=== PATIENT | female | born 1930 | race Caucasian/White ===

== ENCOUNTER 2016-06-04 10:27 | Day surgery (SDC) | payer MEDICARE, MEDICAID ==
[~2016-06-04] VITALS: Ht 157.5 cm; Wt 52.0 kg
[~2016-06-04 10:27] MED LIST: CLOP75TA19 PO; DONE10TA7 PO; GLYB1TAB2 PO; METO-448 PO; PRAV40TA76 PO; TRAM50TA2 PO
--- NOTE | 2016-06-04 11:24 | RADRPT ---
PROCEDURE: XR Chest. CLINICAL INDICATION: Chest pain preoperative evaluation. TECHNIQUE: AP view of the chest was performed. COMPARISON: None FINDINGS: The patient is status post remote median sternotomy. Mild cardiomegaly is present with a left subcl jesusita dual-chamber pacemaker. No acute infiltrate or findings of fluid overload. No signs of pleur al fluid or pneumothorax are seen. The osseous structures and soft tissues are unremarkable. IMPRESSION: No evidence for active cardiopulmonary disease. Status post remote median sternotomy, mild cardiomeg hillary, and cardiac pacer. No acute infiltrate or findings of fluid overload. RPTAT: QQ .Niecy Kearns MD, MD Date Time Electronically viewed and signed by .Niecy Kearns MD, MD on 06/04/2016 11:24 .F/
[2016-06-04 12:17] VITALS: Ht 157.5 cm; Wt 52.0 kg
[2016-06-04 12:20] LABS: ADD SCAN DIFF NO
[2016-06-04 12:23] LABS: BASOPHILS % 0.7 % (0.0-2.0); EOSINOPHILS # 0.2 10^3/ul (0.0-0.5); EOSINOPHILS % 3.6 % (0.0-7.0); HEMATOCRIT 33.1 % (37.0-47.0); HEMOGLOBIN 10.9 g/dl (12.0-16.0); LYMPHOCYTES # 1.4 10^3/ul (0.8-2.9); LYMPHOCYTES % 31.5 % (15.0-51.0); MEAN CORPUSCULAR HGB CONC 32.9 g/dl (32.0-37.0); MEAN CORPUSCULAR VOLUME 100.3 fl (82.0-101.0); MEAN PLATELET VOLUME 11.3 fl (7.4-10.4); MONOCYTE # 0.5 10^3/ul (0.3-0.9); MONOCYTES % 11.7 % (0.0-11.0); NEUTROPHIL # 2.3 10^3/ul (1.6-7.5); NEUTROPHILS % 52.3 % (39.0-77.0); PLATELET COUNT 145 10^3/UL (140-415); WHITE BLOOD COUNT 4.5 10^3/ul (4.8-10.8)
[2016-06-04 12:36] LABS: PROTIME 13.2 Sec (12.2-14.2)
[2016-06-04 12:37] LABS: PARTIAL THROMBOPLASTIN TIME 27.2 Sec (25.0-35.0)
[2016-06-04 12:39] LABS: POTASSIUM 5.6 mmol/L (3.5-5.1)
[2016-06-04 12:40] VITALS: BP 142/60; PULSE 60; RESP 18
[2016-06-04 12:40] LABS: CREATININE 1.04 mg/dl (0.44-1.00)
[2016-06-04 12:41] LABS: CALCIUM 9.4 mg/dl (8.4-10.2)
[2016-06-04] MEDS ORDERED: ATOR10TA65 PO (12:47)
[2016-06-04] MEDS ORDERED: SITA100T8 PO (12:47)
[2016-06-04] MEDS ORDERED: GLIM1TAB2 PO (12:47)
[2016-06-04] MEDS ORDERED: CLON0.5T4 PO (12:47)
[2016-06-04] MEDS ORDERED: FURO40TA4 PO (12:47)
[2016-06-04] MEDS ORDERED: SPIR25TA PO (12:47)
--- NOTE | 2016-06-04 15:11 | SP ---
DATE OF PROCEDURE: 06/04/2016 PREPROCEDURE DIAGNOSIS: Left first toe nonhealing ulcer. POSTPROCEDURE DIAGNOSIS: Left first toe nonhealing ulcer. PROCEDURE PERFORMED: 1. Abdominal aortogram. 2. Bilateral lower extremity angiogram. 3. Percutaneous catheter placement from right common femoral artery into the left popliteal artery. SURGEON: Dex Mariscal MD ANESTHESIA: Local anesthesia. ESTIMATED BLOOD LOSS: Minimal. COMPLICATIONS: No intraprocedural complications. INDICATIONS: This is an 85-year-old diabetic hypertensive woman with long history of peripheral art erial disease. She has a nonhealing ulcer on the left first toe which is very painful. It has been present for several months of the hip without significant improvement. She has palpable popliteal pulse, but no pedal pulses. She was brought in today for angiography and possible intervention. PROCEDURE: The patient was brought to the mushroom laborer and placed on the table in supine position. Aft er the groins were prepped and draped in the usual sterile fashion I used ultrasound to identify the right common femoral artery. I infiltrated over the artery using about 10 mL of 1% Xylocaine. I u sed a micropuncture needle to enter the artery under ultrasound guidance. An 0.018 wire was inserte d through the needle into the artery then a micropuncture sheath was advanced over the wire into the artery. I then advanced an 0.035 Bentson wire into the abdominal aorta, exchanged the micropunctur e sheath for a 5-Sinhala sheath over the wire. I then advanced an Omniflush catheter into the juxtar enal aorta. I did an aortogram. I then advanced the catheter up and over the bifurcation using a B entson wire and first into the common femoral and into the popliteal artery for further evaluation. FINDINGS OF ANGIOGRAPHY: Both renal arteries are patent. The infrarenal aorta is diffusely irregul ar but patent. Both common external and internal iliac arteries are calcified and has some irregula rity but no significant stenosis. The common, superficial and profunda femoral arteries bilaterally are patent without significant disease and going down the left side, the left superficial femoral a rtery is patent. The popliteal artery is patent above and below the knee. There is a very high nolan eoff of the left anterior tibial artery and it occludes just after its origin. The posterior tibial artery on the left as well as peroneal are both quite small and very heavily calcified, although, p atent. There is sort of diffuse narrowing throughout both. The posterior tibial artery essentially occluded at the ankle. The plantar branches then made a medial plantar artery reconstitutes from a branch coming from the peroneal and there is reconstitution of the distal anterior tibial artery and just above the ankle which extends into the foot. The very distal dorsalis pedis artery is occlude d but more proximally it is patent. There is an incomplete pedal arch. When we removed all the cat heter sheaths and wires and used manual compression for hemostasis which was good in the right groin . She was then transferred to the recovery room in stable condition. She tolerated the procedure w ell without any complications. Dictated By: DEX CARLTON/JACY Conf#: [id number] DID#: [id number] CC: MERRICK POND MD;*EndCC*
[2016-06-04 18:43] VITALS: BP 120/63; PULSE 68; RESP 18
--- NOTE | 2016-06-08 17:51 | RADRPT ---
Vent Rate: 60 bpm RR Interval: 0 msec WA Interval: 148 msec QRS Duration: 96 msec QT Interval: 440 msec QTC Interval: 440 msec P-R-T [place]: 117 - 9 - 119 degrees Electronic atrial pacemaker T wave abnormality, consider lateral ischemia Abnormal ECG Electronically Signed By: Juventino Meeks [id number]
== END 2016-06-04 18:46 | disposition home or self-care (01) ==
LOC: SDS 10:27 → GIL 10:33 → SDS 18:46
PROVIDERS: ATTEND Surgery Vascular Surgery
DX: L97.529 Non-pressure chronic ulcer of other part of left foot with unspecified severity (principal); I73.9 Peripheral vascular disease, unspecified
CPT/HCPCS: 36200; 71010; 75716; 80048; 82962; 85025; 85610; 85730; 93005; C1769; C1887; C1894

== ENCOUNTER 2016-07-28 09:52 | Day surgery (SDC) | payer MEDICARE, MEDICAID ==
[~2016-07-28] VITALS: Ht 144.8 cm; Wt 54.0 kg
[~2016-07-28 09:52] MED LIST changes: +ATOR10TA65 PO; +CLON0.5T4 PO; +FURO40TA4 PO; +GLIM1TAB2 PO; -GLYB1TAB2 PO; -METO-448 PO; -PRAV40TA76 PO; +SITA100T8 PO; +SPIR25TA PO; -TRAM50TA2 PO
[2016-07-28 10:43] VITALS: Ht 144.8 cm; Wt 54.0 kg
[2016-07-28 10:45] VITALS: BP 144/62; PULSE 61; RESP 18
[2016-07-28 10:57] LABS: ADD SCAN DIFF NO
[2016-07-28 11:03] LABS: BASOPHILS % 0.5 % (0.0-2.0); EOSINOPHILS # 0.1 10^3/ul (0.0-0.5); EOSINOPHILS % 2.1 % (0.0-7.0); HEMATOCRIT 32.8 % (37.0-47.0); HEMOGLOBIN 10.6 g/dl (12.0-16.0); LYMPHOCYTES # 1.2 10^3/ul (0.8-2.9); MEAN CORPUSCULAR HEMOGLOBIN 33.9 pg (29.0-33.0); MEAN CORPUSCULAR HGB CONC 32.3 g/dl (32.0-37.0); MEAN CORPUSCULAR VOLUME 104.8 fl (82.0-101.0); MEAN PLATELET VOLUME 11.4 fl (7.4-10.4); MONOCYTE # 0.5 10^3/ul (0.3-0.9); MONOCYTES % 12.6 % (0.0-11.0); NEUTROPHIL # 1.9 10^3/ul (1.6-7.5); NEUTROPHILS % 51.5 % (39.0-77.0); PLATELET COUNT 143 10^3/UL (140-415); RED BLOOD COUNT 3.13 10^6/ul (4.20-5.40); RED CELL DISTRIBUTION WIDTH 13.2 % (11.5-14.5); WHITE BLOOD COUNT 3.7 10^3/ul (4.8-10.8)
[2016-07-28 11:10] LABS: INR 1.08; PT RATIO 1.1
[2016-07-28 11:12] LABS: PARTIAL THROMBOPLASTIN TIME 27.8 Sec (25.0-35.0)
[2016-07-28 11:15] LABS: CALCIUM 9.1 mg/dl (8.4-10.2); POTASSIUM 3.9 mmol/L (3.5-5.1)
[2016-07-28 11:17] LABS: CREATININE 1.2 mg/dl (0.44-1.00)
--- NOTE | 2016-07-28 12:45 | RADRPT ---
PROCEDURE: XR Chest. CLINICAL INDICATION: Shortness of breath. TECHNIQUE: Single frontal view. COMPARISON: 06/04/2016. FINDINGS: There is mild interstitial disease bilaterally in the mid and lower lung zones consistent with mild pulmonary edema. The lungs are otherwise clear. The heart is enlarged. There are sternal wires and mediastinal clips. There is a left-sided dual l ead permanent pacemaker. There is no pleural effusion. There is no pneumothorax. IMPRESSION: 1. Mild pulmonary edema. 2. Cardiomegaly. 3. Previous median sternotomy. 4. Permanent pacemaker. RPTAT: QQ .Donis Zepeda MD, MD Date Time Electronically viewed and signed by .Donis Zepeda MD, MD on 07/28/2016 12:45 .R/
[2016-07-28] MEDS ORDERED: HEPARIN 1000 UNITS/ML 10 ML INJ ONE ×2 (14:31→14:32)
[2016-07-28] MEDS ORDERED: FENTAnyl 50 MCG/ML VIAL ONE (14:31)
[2016-07-28] MEDS ORDERED: HEPARIN 1000 UNITS/NS (A-LINE) 1,000 ML ONE (14:32)
[2016-07-28] MEDS ORDERED: MIDAZOLAM 1 MG/ML 2 ML INJ ONE (14:32)
[2016-07-28] MEDS ORDERED: LIDOCAINE 1% (MDV) 20 ML INJ ONE (14:32)
[2016-07-28] MEDS ORDERED: IODIXANOL LOCM 100 ML BTL ONE (14:32)
[2016-07-28] MEDS ORDERED: VERAPAMIL 5 MG INJ ONE (15:24)
[2016-07-28 16:30] VITALS: BP 139/61; PULSE 63; RESP 18
--- NOTE | 2016-07-28 17:08 | OPR ---
DATE OF OPERATION: 07/28/2016 PREOPERATIVE DIAGNOSIS: Left first toe nonhealing ulcer. POSTOPERATIVE DIAGNOSIS: Left first toe nonhealing ulcer. PROCEDURE PERFORMED: 1. Abdominal aortogram. 2. Left lower extremity arteriogram. 3. Percutaneous mechanical atherectomy and angioplasty of left tibioperoneal trunk artery and left peroneal artery. SURGEON: Dex Mariscal MD ANESTHESIA: Local with sedation. ESTIMATED BLOOD LOSS: Minimal. COMPLICATIONS: No intraprocedural complications. INDICATIONS: This is an 85-year-old woman with nonhealing ulcer on the left first toe. She has a p revious arteriogram which showed some diffuse tibial disease. The anterior tibial was occluded. Pe roneal was the main runoff and left posterior tibial artery occludes distally so I brought her back today for percutaneous intervention. I had vein mapped her and she had no usable saphenous veins so I thought it would be better to do a percutaneous intervention. PROCEDURE: The patient was brought to the cathodic protection technician and placed on the table in supine position. [facility] groin was prepped and draped in the usual sterile fashion. Using ultrasound to identify the [facility] common femoral artery, I infiltrated over the artery using 10 mL of 1% Xylocaine. I then used a m icropuncture needle to enter the right common femoral artery under ultrasound guidance. I advanced an 0.018 wire through the needle into the artery and then a micropuncture sheath was advanced over t he wire into the artery. I then advanced an 0.035 Bentson wire up into the abdominal aorta, exchang ed the micropuncture sheath for a 5-Kittitian sheath over the wire and then advanced an Omniflush jason ter over the Bentson into the infrarenal aorta. I did an aortogram. I then advanced the wire up an d over the bifurcation using the catheter for guidance and advanced the wire down into the left supe rficial femoral artery and advanced the catheter over the wire down into left superficial femoral ar layo and further down into the popliteal. I then did left lower extremity arteriography with findin robyn as described previously, but essentially the aorta is with findings as detailed below. Once I vazquez d the catheter in the popliteal, I advanced an Amplatz wire through the catheter and exchanged the 5 -Kittitian sheath for a 6-Kittitian 70 cm sheath which I left in the left popliteal artery and did further lower extremity angiography and finally proceeded with intervention. FINDINGS OF ANGIOGRAPHY: The infrarenal aorta was patent. The common and external iliac arteries w ere patent bilaterally. Internal iliac arteries were patent bilaterally. Both common, superficial and profunda femoral arteries are patent without any significant disease. Everything is fairly heav frandy calcified, but there was no stenosis. Then going down the left leg, the SFA and popliteal are w idely patent above and below the knee. Below the knee, the anterior tibial artery comes off right a t the knee and occludes very shortly after its origin and then the TP trunk is patent but was so tig htly calcified that I could not get 0.035 Quick-Cross catheter through it. The peroneal artery has sort of an angled origin with greater than 90% stenosis at its origin. The posterior tibial artery is patent with some disease at its origin and then sort of dissipates distally and becomes very tin y. The peroneal artery is the main vessel going down to the foot. The stenosis at the origin is pa tent down to the ankle and gives off large collaterals the which reconstitute the dorsalis pedis and some plantar branches. So I decided to treat the TP trunk stenosis, high-grade calcified stenosis as well as the proximal stenosis in the peroneal artery, so I advanced through that. I gave the pat ient 5000 units of heparin intravenously. I then advanced the Viper wire down through the stenosis in the TP trunk and I was able to get the wire to advance into the peroneal down into its distal por tion. I then used a 1.25 micro CSI orbital atherectomy catheter. I made 3 passes through each of t he lesions. The one in the TP trunk and also at the origin of the peroneal on low, medium and high settings. I then postdilated the TP trunk stenosis with a 3.5 mm balloon x 6 cm in length for 2 min utes. I did a long inflation with no residual stenosis. The stenosis at the origin of the peroneal was completely gone now and was widely patent just after the CSI orbital atherectomy, so I did not do any angioplasty of the peroneal. At this point, I was happy with the results. I pulled the galicia th back into the right external iliac artery and did a completion view which showed groin puncture s ite was in the common femoral artery in good position. I then advanced the [employer] Search[employer] wire back into t he sheath up into the aorta and then closed the right femoral puncture using a 6-Kittitian Angio-Seal d evice. There was good hemostasis. Patient tolerated the procedure well. She was transferred to re covery room in stable condition without any complications. Dictated By: DEX CARLTON/JACY Conf#: [id number] DID#: [id number]
[2016-07-28 17:30] VITALS: BP 133/66; PULSE 64; RESP 18
[2016-07-28 18:10] VITALS: BP 132/64; PULSE 63; RESP 18
--- NOTE | 2016-07-30 09:30 | RADRPT ---
Vent Rate: 59 bpm RR Interval: 0 msec AR Interval: 152 msec QRS Duration: 96 msec QT Interval: 450 msec QTC Interval: 445 msec P-R-T [place]: 75 - 1 - 101 degrees Electronic atrial pacemaker Nonspecific T wave abnormality Abnormal ECG Electronically Signed By: Manuel Fields [id number]
== END 2016-07-28 18:35 | disposition home or self-care (01) ==
LOC: SDS 09:52
PROVIDERS: ATTEND Surgery Vascular Surgery
DX: I73.9 Peripheral vascular disease, unspecified (principal); L97.529 Non-pressure chronic ulcer of other part of left foot with unspecified severity
CPT/HCPCS: 37229; 71010; 80048; 82962; 85025; 85610; 85730; 93005; C1714; C1725; C1760; C1769; C1887; C1894; J1644; J2250; J3010; Q9967

== ENCOUNTER 2018-06-20 10:45 | Emergency (ER) | payer MEDICARE, OTHER ==
[~2018-06-20] VITALS: Ht 152.4 cm; Wt 58.0 kg
[~2018-06-20 10:45] MED LIST changes: +CLON0.5T14 PO; -CLON0.5T4 PO; -SITA100T8 PO; -SPIR25TA PO
[2018-06-20 10:48] VITALS: Ht 152.4 cm; Wt 58.0 kg
[2018-06-20] MEDS ORDERED: HYDROmorphONE 1 MG/ML SYG IV STA (11:22)
[2018-06-20] MEDS ORDERED: ONDANSETRON 4 MG INJ IV STA (11:22)
[2018-06-20] MEDS ORDERED: METHYLPREDNISOLONE 125 MG INJ IV ONE (11:30)
[2018-06-20] MEDS ORDERED: CLOP75TA27 PO (12:03)
[2018-06-20] MEDS ORDERED: CLON1TAB13 PO (12:03)
[2018-06-20] MEDS ORDERED: DONE10TA7 PO (12:03)
[2018-06-20] MEDS ORDERED: LEVO50TA71 PO (12:04)
[2018-06-20] MEDS ORDERED: FURO40TA4 PO (12:04)
[2018-06-20] MEDS ORDERED: GLIM1TAB2 PO (12:04)
[2018-06-20] MEDS ORDERED: CHOL100062 PO (12:05)
[2018-06-20] MEDS ORDERED: INSU100I12 SQ (12:06)
[2018-06-20] MEDS ORDERED: TRAM50TA2 PO (12:43)
[2018-06-20] MEDS ORDERED: PRED20TA PO (12:43)
[2018-06-20] MEDS ORDERED: HYDR-4011 PO (12:43)
--- NOTE | 2018-06-20 13:03 | ERD ---
ER Documentation Chief Complaint Chief Complaint DIABETIC ULCER LT FOOT WITH PAIN X 1 WEEK HPI This is a 87-year-old female with diabetic who is here because her left leg hurts from the left knee to the foot described as a burning sensation and is much worse at night. This is been happening off and on for a few months but is getting more consistent over the past few weeks. There is no discoloration to the leg or toes. The patient had a small callus on the tip of her left great toe that was filed off by the family and they want me to evaluate that too, there is no erythema. ROS All systems reviewed and are negative except as per history of present illness. Medications Home Meds Active Scripts Prednisone* (Prednisone*) 20 Mg Tab, 60 MG PO DAILY for 5 Days, TAB Prov:HOWARD SERVIN DO 06/20/18 Hydrocodone/Acetaminophen ([place] 5-325 Tablet) 1 Each Tablet, 1 TAB PO Q6H PRN for PAIN, #15 TAB Prov:HOWARD SERVIN DO 06/20/18 Tramadol HCl (Tramadol HCl) 50 Mg Tablet, 50 MG PO Q6, #20 TAB Prov:HOWARD SERVIN DO 06/20/18 Reported Medications Insulin Lispro (Humalog Kwikpen U-100) 100 Unit/1 Ml Insuln.pen, 0 SQ AC MEALS, EA SLIDING SCALE 06/20/18 Cholecalciferol* (Vitamin D3*) 1,000 Unit Tablet, 1000 UNIT PO DAILY, TAB 06/20/18 Levothyroxine Sodium* (Levoxyl*) 50 Mcg Tablet, 50 MCG PO BEFORE BREAKFAST, #30 TAB 06/20/18 Glimepiride* (Glimepiride*) 1 Mg Tablet, 1 MG PO WITH BREAKFAST, TAB 06/20/18 Furosemide* (Furosemide*) 40 Mg Tablet, 40 MG PO DAILY, TAB 06/20/18 Donepezil* (Aricept*) 10 Mg Tablet, 10 MG PO DAILY, TAB 06/20/18 Clopidogrel Bisulfate (Clopidogrel) 75 Mg Tablet, 75 MG PO DAILY, #30 TAB 06/20/18 Clonazepam* (Clonazepam*) 1 Mg Tablet, 1 MG PO DAILY PRN for ANXIETY, TAB 06/20/18 Discontinued Reported Medications Clonazepam* (Clonazepam*) 0.5 Mg Tablet, 0.5 MG PO BID, TAB 06/04/16 Atorvastatin Calcium (Atorvastatin Calcium) 10 Mg Tablet, 10 MG PO QHS, #30 TAB 06/04/16 Glimepiride* (Glimepiride*) 1 Mg Tablet, 1 MG PO WITH BREAKFAST, TAB 06/04/16 Furosemide* (Furosemide*) 40 Mg Tablet, 40 MG PO DAILY, TAB 06/04/16 Clopidogrel Bisulfate (Plavix) 75 Mg Tablet, 75 MG PO DAILY 11/29/11 Donepezil* (Aricept*) 10 Mg Tablet, 10 MG PO DAILY 11/29/11 Allergies Allergies: Coded Allergies: No Known Allergies (Verified Allergy, Unknown, 06/20/18) PMhx/Soc History of Surgery: Yes (CABG,PPM,TRIPLE BYPASS,CLIP ON VALVE) Anesthesia Reaction: No Hx Neurological Disorder: No Hx Respiratory Disorders: No Hx Cardiac Disorders: Yes ([place]) Hx Psychiatric Problems: No Hx Miscellaneous Medical Probl: No Hx Alcohol Use: No Hx Substance Use: No Hx Tobacco Use: No Smoking Status: Never smoker FmHx Family History: No coronary disease Physical Exam Vitals Vital Signs Date Temp Pulse Resp B/P (MAP) Pulse Ox O2 O2 Flow FiO2 Time Delivery Rate 06/20/18 98.3 77 18 104/50 95 10:48 (68) Physical Exam Const: Well-developed, well-nourished Head: Atraumatic, normocephalic Eyes: Normal Conjunctiva, PERRLA, EOMI, normal sclera, no nystagmus ENT: Normal External Ears, Nose and Mouth, moist mucus membranes. Neck: Full range of motion. No meningismus, no lymphadenopathy. Resp: Clear to auscultation bilaterally, no wheezing, rhonchi, rales Cardio: Regular rate and rhythm, no murmurs, S1 S2 present Abd: Soft, non tender x 4, non distended. Normal bowel sounds, no guarding or rebound, no pulsitile abdominal masses or bruits Skin: No petechiae or rashes, no ecchymosis , no maculopapular rash Back: No midline or flank tenderness Ext: No cyanosis, or edema, FROM x 4, normal inspection, neurovascularly intact x 4, the left leg specifically has a good dorsalis pedis pulse with good capillary refill the foot is warm to touch, there is a 4-5 mm diameter wound on the tip of the great toe that does not show any signs of infection whatsoever Neur: Awake and alert, STR 5/5 x 4, sensation intact x 4, no focal findings, cerebellum intact Psych: Normal Mood and Affect Results 24 hrs Current Medications Medications Dose Sig/Shahla Start Time Status Last (Trade) Ordered Route PRN Stop Time Admin Dose Reason Admin 0.5 mg ONCE STAT 06/20/18 DC 06/20/18 Hydromorphone IV 11:22 11:42 HCl 06/20/18 11:24 (Dilaudid) Ondansetron 4 mg ONCE STAT 06/20/18 DC 06/20/18 HCl (Zofran IV 11:22 11:42 Inj) 06/20/18 11:24 125 mg ONCE ONCE 06/20/18 DC 06/20/18 Methylprednis IV 11:30 11:42 olone Sodium 06/20/18 11:31 Succinate (Solu-Medrol) Procedures/MDM Patient is having diabetic neuropathy pain. She received pain medication here is feeling better. The wound on the toe is not infected I told the family to watch it and see if he gets any worse and if it does to return. Will discharge home with some Ultram, prednisone and hydrocodone for pain as needed Departure Diagnosis: Primary Impression: Neuropathy Additional Impression: Foot ulcer Laterality: left Non-pressure ulcer stage: unspecified non-pressure ulcer stage Qualified Codes: L97.529 - Non-pressure chronic ulcer of other part of left foot with unspecified severity Condition: Stable Patient Instructions: Diabetic Foot Ulcers, Diabetic Foot Care, Neuropathy, Peripheral HOWARD SERVIN DO Jun 20, 2018 13:01
[2018-06-20 14:03] VITALS: BP 108/65; PULSE 70; RESP 19
== END 2018-06-20 14:05 | disposition home or self-care (01) ==
LOC: E/R 10:45
DX: E11.621 Type 2 diabetes mellitus with foot ulcer (principal); L97.529 Non-pressure chronic ulcer of other part of left foot with unspecified severity; I25.2 Old myocardial infarction; E11.40 Type 2 diabetes mellitus with diabetic neuropathy, unspecified; Z79.4 Long term (current) use of insulin
CPT/HCPCS: 96374; 96375; 99284; J1170; J2405; J2930

== ENCOUNTER 2018-08-11 06:23 | Day surgery (SDC) | payer MEDICARE, OTHER ==
[2018-08-11] VITALS (12 sets, daily range): BP systolic 86–120; BP diastolic 42–58; PULSE 60–80; RESP 11–23; Ht 162.6 cm; Wt 57.7 kg
[~2018-08-11] VITALS: Ht 162.6 cm; Wt 57.7 kg
[~2018-08-11 06:23] MED LIST changes: -ATOR10TA65 PO; +CHOL100062 PO; -CLON0.5T14 PO; +CLON1TAB13 PO; -CLOP75TA19 PO; +CLOP75TA27 PO; +HYDR-4011 PO; +INSU100I12 SQ; +LEVO50TA71 PO; +PRED20TA PO; +TRAM50TA2 PO
[2018-08-11] MEDS ORDERED: LACTATED RINGER'S 1,000 ML IV SCH (07:15)
[2018-08-11] MEDS ORDERED: CEFAZOLIN 1 GM/50 ML (PMX) 50 ML IVPB ONE (07:30)
--- NOTE | 2018-08-11 07:31 | PREAC ---
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 not on B-Clary Active Scripts Prednisone* (Prednisone*) 20 Mg Tab, 60 MG PO DAILY for 5 Days, TAB Prov:HOWARD SERVIN DO 06/20/18 Hydrocodone/Acetaminophen ([place] 5-325 Tablet) 1 Each Tablet, 1 TAB PO Q6H PRN for PAIN, #15 TAB Prov:HOWARD SERVIN DO 06/20/18 Tramadol HCl (Tramadol HCl) 50 Mg Tablet, 50 MG PO Q6, #20 TAB Prov:HOWARD SERVIN DO 06/20/18 Reported Medications Insulin Lispro (Humalog Kwikpen U-100) 100 Unit/1 Ml Insuln.pen, 0 SQ AC MEALS, EA SLIDING SCALE 06/20/18 Cholecalciferol* (Vitamin D3*) 1,000 Unit Tablet, 1000 UNIT PO DAILY, TAB 06/20/18 Levothyroxine Sodium* (Levoxyl*) 50 Mcg Tablet, 50 MCG PO BEFORE BREAKFAST, #30 TAB 06/20/18 Glimepiride* (Glimepiride*) 1 Mg Tablet, 1 MG PO WITH BREAKFAST, TAB 06/20/18 Furosemide* (Furosemide*) 40 Mg Tablet, 40 MG PO DAILY, TAB 06/20/18 Donepezil* (Aricept*) 10 Mg Tablet, 10 MG PO DAILY, TAB 06/20/18 Clopidogrel Bisulfate (Clopidogrel) 75 Mg Tablet, 75 MG PO DAILY, #30 TAB 06/20/18 Clonazepam* (Clonazepam*) 1 Mg Tablet, 1 MG PO DAILY PRN for ANXIETY, TAB 06/20/18 Current Medications Cefazolin Sodium 50 ml @ 100 mls/hr PRE-OP FIELD HOCKEY COACH ONCE IVPB ; Start 08/11/18 at 07:30; Stop 08/11/18 at 07:59 Lactated Ringer's 1,000 ml @ 100 mls/hr Q10H IV ; Start 08/11/18 at 07:15 Meds reviewed: Yes Allergies Coded Allergies: No Known Allergies (Verified Allergy, Unknown, 06/20/18) Allergies Reviewed: Yes Labs/Studies Labs Reviewed: Reviewed by anesthesiologist test: N/A Studies: ECG, CXR, Other (professor of music notes) Pre-procedure Exam Last vitals Vital Signs Date Temp Pulse Resp B/P (MAP) Pulse Ox O2 O2 Flow FiO2 Time Delivery Rate 08/11/18 97.2 80 16 120/47 98 Room Air 07:15 (71) Airway: Adequate mouth opening, Adequate thyromental dist Mallampati: Mallampati II Teeth: Normal (partials are out) Lung: Normal Heart: Normal ASA Physical Status ASA physical status: 3 Emergency: None Planned Anesthetic General/MAC: MAC Planned Pain Management Parenteral pain med, Local by surgeon Pre-operative Attestations Prior to commencing anesthesia and surgery, the patient was re-evaluated, there was verification of: *The patient's identity *The results of appropriate recent lab work and preoperative vital signs *The above evaluation not changing prior to induction *Anesthetic plan, risk benefits, alternative and complications discussed with patient/family; questions answered; patient/family understands, accepts and wishes to proceed. MONAE ORR August 11, 2018 07:31
[2018-08-11] MEDS ORDERED: APIX2.5T PO (07:33)
[2018-08-11] MEDS ORDERED: GABA300C16 PO (07:37)
[2018-08-11] MEDS ORDERED: ATOR10TA65 PO (07:40)
[2018-08-11] MEDS ORDERED: CEPH500C PO (07:40)
[2018-08-11] MEDS ORDERED: PROPOFOL 20 ML ONE (07:50)
[2018-08-11] MEDS ORDERED: CEFAZOLIN 1 GM INJ ONE (07:50)
[2018-08-11] MEDS ORDERED: FENTAnyl 50 MCG/ML VIAL ONE (07:50)
[2018-08-11] MEDS ORDERED: BUPIVACAINE 0.5% (SDV) 30 ML INJ ONE (07:58)
--- NOTE | 2018-08-11 08:00 | HPN ---
Date/Time of Note Date/Time of Note DATE: 08/11/18 TIME: 08:00 Interval H&P Admission Note Pt. seen H&P reviewed: No system changes MERRICK POND DPM August 11, 2018 08:00
[2018-08-11] MEDS ORDERED: OXYCODONE/ACETAMINOPHEN (5/325) TAB PO PRN ×2 (08:30)
[2018-08-11] MEDS ORDERED: ONDANSETRON 4 MG INJ IV PRN (08:30)
[2018-08-11] MEDS ORDERED: FENTAnyl 50 MCG/ML VIAL IV PRN ×3 (08:30)
--- NOTE | 2018-08-11 08:59 | SIPON ---
Date/Time of Note Date/Time of Note DATE: 08/11/18 TIME: 08:57 Operative Report Preoperative Diagnosis Left Hallux, Osteomyelitis Postoperative Diagnosis Same Operation/Procedure Performed Debridement of osteomyelitic Bone left Hallux with application of allograft. Surgeon see signature line blood donor unit assistant None. Anesthesia: MAC Estimated blood loss: minimal Transfusion Required none Specimen osteomyelitic Bone Distal Phalanx. Grafts/Implants none Complications none MERRICK POND DPM August 11, 2018 08:59
[2018-08-11] MEDS ORDERED: ONDANSETRON (ODT) 4 MG TAB ODT PRN (09:00)
[2018-08-11] MEDS ORDERED: HYDROCODONE/APAP (10/325) TAB PO PRN (09:00)
--- NOTE | 2018-08-11 09:05 | PAC ---
Date/Time of Note Date/Time of Note DATE: 08/11/18 TIME: 09:04 Post-Anesthesia Notes Post-Anesthesia Note Last documented vital signs POST, HR 69 SPO2 96% BP 114/58 Temp 97.8 RR 14 Vital Signs Date Temp Pulse Resp B/P (MAP) Pulse Ox O2 O2 Flow FiO2 Time Delivery Rate 08/11/18 97.8 09:01 08/11/18 80 16 120/47 98 Room Air 07:15 (71) Activity: WNL Respiratory function: WNL Cardiovascular function: WNL Mental status: Baseline Pain reasonably controlled: Yes Hydration appropriate: Yes Nausea/Vomiting absent: Yes MONAE ORR August 11, 2018 09:05
--- NOTE | 2018-08-11 10:26 | OPR ---
DATE OF OPERATION: 08/11/2018 PREOPERATIVE DIAGNOSIS: Osteomyelitis of the distal phalanx of the left great toe. POSTOPERATIVE DIAGNOSIS: Osteomyelitis of the distal phalanx of the left great toe. OPERATION PERFORMED: Debridement of osteomyelitic bone of the distal phalanx and application of allograft. ANESTHESIA: MAC with local. OPERATION: The patient was brought into the OR and approximately 7 mL of 0.5% Marcaine plain was utilized circumferentially around the left great toe. After anesthesia was achieved, the tourniquet was applied around the ankle. The area was prepped and draped in usual sterile fashion. An Esmarch was utilized to exsanguinate the foot and ankle. Tourniquet was inflated to approximately 250 mmHg. Attention was directed then to the distal aspect of the left hallux. Utilizing a #15 blade, a fish mouth incision was performed and the ulceration at the distal aspect was circumscribed and removed. The osteomyelitic bone was in clear view. It should be noted that the toenail was avulsed prior to incision. The osteomyelitic bone was identified. Utilizing a sagittal saw, approximately 1/3 to 1/2 of the distal aspect of the phalanx was removed in toto. The remaining bone was inspected. There were no signs of osteomyelitis noted involving the distal phalanx. A surgical site was then copiously lavaged with antibiotic solution. Application of allograft Stravix was then cut and applied around the bone and into the wound. Utilizing 2-0 and 3-0 Vicryl suture the surgical site was coapted. Also, 3-0 nylon was utilized to close the skin. The remaining Stravix was then applied over the bleeding nail bed. Adaptic was then applied over the area. The dressing of gauze, 4 x 4's, and Coban was applied. The tourniquet was released and normoactive hyperemia was also noted to all the digits of the left foot. This patient tolerated the procedure well and left the room in stable condition. There were no intraoperative complications noted. Also, minimal blood loss was noted. Dictated By: MERRICK POND MD RS/NTS Conf#: [id number] DID#: [id number] CC: MERRICK POND MD;*EndCC* MTDD
== END 2018-08-11 10:40 | disposition home or self-care (01) ==
LOC: SDS 06:23
PROVIDERS: ATTEND Podiatrist Foot & Ankle Surgery
DX: M86.8X7 Other osteomyelitis, ankle and foot (principal); I10 Essential (primary) hypertension; E11.9 Type 2 diabetes mellitus without complications; E03.9 Hypothyroidism, unspecified; I25.10 Atherosclerotic heart disease of native coronary artery without angina pectoris; Z79.01 Long term (current) use of anticoagulants; Z79.02 Long term (current) use of antithrombotics/antiplatelets; Z79.4 Long term (current) use of insulin
CPT/HCPCS: 11044; 73630; 82962; 88304; 88311; J0690; J2405; J3010